=== PATIENT | female | born 1980 | race Caucasian/White ===

== ENCOUNTER 2016-07-30 00:49 | Inpatient (IN) | payer MEDICARE ==
[2016-07-30] VITALS (12 sets, daily range): BP systolic 90–163; BP diastolic 50–111
[~2016-07-30] VITALS: Ht 167.6 cm; Wt 120.8 kg
--- NOTE | ~2016-07-30 | PR ---
[place], [place] PROGRESS NOTE NAME: LAURA ISRAEL UNIT #: [id number] ROOM: 415 DOCTOR: DANIELA GILES MD BIRTHDATE: [birth year] DOS: SUBJECTIVE: The patient is doing 25% better. She was admitted for wheezing, unable to breath 2 days ago. The patient has been sick for almost a month. She has been coughing for a month, but in the last 2 weeks, she had more expectoration. The patient was also having chest pain and she still says that she gets very short of breath and feels chest pressure on deep breathing. OBJECTIVE: VITAL SIGNS: Blood pressure is 133/61, pulse is 105, respiratory 20, temperature 98.6. CHEST: Clinically, decreased breath sounds bilaterally, prolonged expiration. HEART: S1, S2, regular rate and rhythm. No murmur, gallop or rub. ABDOMEN: Soft, nontender. EXTREMITIES: No edema noted. LABORATORY DATA: Cardiac enzymes are negative. WBC count is 13.7, hemoglobin 16.2, platelets 284. ASSESSMENT: At this time is, 1. 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 2. Depression. 3. Generalized anxiety disorder. 4. Gastroesophageal reflux disease. 5. Hyperlipidemia. 6. Hyperglycemia. 7. Leukocytosis. 8. Morbid obesity. 9. Neuropathy. 10. Tobacco abuse. 11. Vitamin D deficiency. PLAN OF CARE: 1. We will continue all home medications. 2. We will continue Rocephin and methylprednisone. I am going to add Zithromax to cover for atypicals. 3. We will continue DuoNeb breathing treatments and we will follow the patient in the morning. Tobacco counseling was already done by Dr. Logan. [place], [place] PROGRESS NOTE NAME: LAURA ISRAEL UNIT #: [id number] ROOM: 415 DOCTOR: DANIELA GILES MD BIRTHDATE: [birth year] DANIELA GILES MD CM:PNTRANS [id number] DANIELA GILES MD 08/01/16 0614 interface
--- NOTE | ~2016-07-30 | WRIGHTHP ---
[place], [place] PATIENT HISTORY AND PHYSICAL EXAM NAME: LAURA ISRAEL [facility] #: [id number] UNIT #: [id number] ROOM: 415 DOCTOR: AUBREE GREEN MD BIRTHDATE: [birth year] DOS: 07/30/2016 HISTORY OF PRESENT ILLNESS: The patient is a 35-year-old female who came to Emergency Department with history of difficulty breathing, wheezing and cold and cough for the last 2 weeks with some expectoration and she was progressively getting worse and have started having some chest pain for the last one day and she could not tolerate due to GERD, so she came to Emergency Department. She has been admitted to the hospital with chest pain and acute exacerbation of COPD with emphysema. ALLERGIES: THE PATIENT IS ALLERGIC TO ASPIRIN. PAST MEDICAL HISTORY: She is having history of chest pain in the past, COPD, depression, generalized anxiety disorder, GERD syndrome, hypercholesterolemia, hyperglycemia, leukocytosis, moderate protein-calorie malnutrition, morbid obesity with BMI of more than 40, neuropathy, systemic inflammatory response syndrome, tobacco abuse and vitamin D deficiency. The patient was admitted to hospital for gallbladder surgery last time. PAST SURGICAL HISTORY: History of arthroscopy of left knee, history of arthroscopy of the right knee and history of cholecystectomy, section and hysterectomy. SOCIAL HISTORY: The patient does not drink, does not use any illicit drug, but she smokes 1-1/2 pack of cigarettes daily when she was 10 years old. No recreational drugs. FAMILY HISTORY: Father at age 62, cause myocardial infarction and mother at age 44 of congestive heart failure, strong history of coronary heart disease in the family and myocardial infarctions and also cerebrovascular accident. PHYSICAL EXAMINATION: GENERAL: The patient is conscious, alert and oriented. VITAL SIGNS: Blood pressure 151/93, pulse is 82, respirations 19, temperature 97.9. She is 5 feet 6 inch tall, weighing 260 pounds, body mass is 42, oxygen saturation is about 97% on 2 liters of oxygen. HEENT: She has some congestion of nose and throat. Trachea is center. NECK: Veins are not distended. Carotid pulsation normal. HEART: Regular, no murmur or thrills. LUNGS: Showing few rhonchi with increased expiration. No crepitation. ABDOMEN: Soft. Liver and spleen not palpable. No area of tenderness, no mass palpable. EXTREMITIES: No edema of leg. LABORATORY DATA: Her protime is 10.3 which is normal. Comprehensive metabolic profile showed glucose 112. Other values are normal. CK-MB and troponin levels are normal. CBC showed white count 13,700, hemoglobin 16.2, hematocrit 46.8, 38% neutrophils, 47% lymphocytes, 10% monocytes. Chest x-ray is normal. Troponin level on 2 different occasions is normal. [place], [place] PATIENT HISTORY AND PHYSICAL EXAM NAME: [facility]RAEL [facility] [id number] UNIT #: [id number] ROOM: [facility] DOCTOR: AUBREE GREEN MD BIRTHDATE: [birth year] DIAGNOSES: So her diagnosis is chest pain with acute exacerbation of chronic obstructive pulmonary disease with emphysema, depression, generalized anxiety disorder, gastroesophageal reflux disease syndrome, hypercholesterolemia, hyperglycemia, leukocytosis, morbid obesity, neuropathy, tobacco abuse, vitamin D deficiency. HOME MEDICATIONS: The patient is taking aerosol treatment with Ventolin upper modules 20 mg daily, Symbicort 160/4.5 two puffs twice daily, Lipitor 10 mg daily, vitamin D 2000 units daily, vitamin E 4000 units twice daily, ibuprofen 600 mg 8 hours p.r.n., gabapentin 800 mg 3 times daily, Adipex 37.5 mg daily. PLAN OF TREATMENT: The patient will be admitted to hospital will be started on aerosol treatment with DuoNeb every 6 hours and Singulair 10 mg daily, Symbicort 160/4.5 two puffs twice daily, lisinopril and hydrochlorothiazide 10/12.5 mg daily, Tylenol p.r.n., Rocephin 1 gram IV daily and methylprednisolone 80 mg IV every 8 hours and aerosol with DuoNeb every 6 hours and the patient is counseled very strongly to stop smoking. I have to discuss with her in long why she need to stop smoking take more than 4-5 hours to convince her that she has to stop smoking. She agreed to do so. I will put her on Nicoderm patch 21 mg daily and she will be also put on 1400 calorie diet. AUBREE GREEN MD CM:HISPHYS:PATIENT HISTORY AND PHYSICAL EXAMINATION 5 1210 AUBREE GREEN MD 07/30/16 1211 interface
[~2016-07-30 00:49] MED LIST: ABILIFY10 MG PO; ADIPEX-P37.5 MG PO; AMOXICILLIN500 M2 PO; AMOXICILLIN500 MG PO; ANAPROX DS550 MG PO; ANTIVERT/2525 MG PO; ANUSOL-HC25 MG RC; AUGMENTIN 875 M1 TAB PO; BACTRIM DS 8001 TA1 PO; CARAFATE1 G1 PO; CLINDAMYCIN HC300 MG PO; DARVOCET N 1001 TAB PO; DIFLUCAN150 MG PO; DOXYCYCLINE MO100 MG PO; FLEXERIL10 MG PO; GEODON80 MG PO; HYDROCODONE BIT1 T11 PO; IBUPROFEN600 MG PO; KEFLEX500 MG PO; LIPITOR10 MG PO; MOTRIN800 MG PO; NEURONTIN800 MG PO; NORFLEX100 MG PO; PERCOCET 325 MG1 TA2 PO; PREDNICOT20 MG PO; PRILOSEC20 MG PO; PROAIR HFA0.09 MG/AC IH; PROTONIX40 MG PO; PYRIDIUM200 MG PO; SYMBICORT1 AE1 INH; TRAMADOL HCL50 MG PO; TRAZODONE100 MG PO; TRIMOX500 MG PO; ULTRAM50 MG PO; VALIUM10 MG PO; VENTOLIN H0.09 MG/AC INH; VENTOLIN0.09 MG/AC INH; VICODIN 5/500 505 MG PO; VITAMIN D32000 UNIT PO; VITAMIN E400 UNI1 PO; ZOFRAN ODT4 MG SL; ZOLOFT100 MG PO
[2016-07-30 01:08] LABS: HEMATOCRIT 46.8 % (37.0-47.0); HEMOGLOBIN 16.2 g/dl (12.0-16.0); MEAN CELL VOLUME 92.9 fl (81.0-99.0); MEAN CORPUSCULAR HGB 32.1 pg (27.0-31.0); MEAN CORPUSCULAR HGB CONC 34.6 g/dl (33.0-37.0); MEAN PLATELET VOLUME 9.8 fl (9.6-12.3); PLATELET COUNT AUTOMATED 284 10*3/uL (130-400); RED BLOOD COUNT 5.04 10*6/uL (4.10-5.10); RED CELL DISTRI WIDTH 12.3 % (0-14.5); WHITE BLOOD COUNT 13.7 10*3/uL (4.8-10.8)
[2016-07-30 01:18] LABS: PROTHROMBIN TIME 10.3 SECONDS (9.0-12.4)
[2016-07-30 01:24] LABS: ALBUMIN 3.3 gm/dl (3.1-4.5); ALKALINE PHOSPHATASE 105 U/L (45-117); BILIRUBIN, TOTAL 0.3 mg/dl (0.2-1.0); BUN 12 mg/dl (7-24); CARBON DIOXIDE 24 mmol/L (21-32); CHLORIDE 104 mmol/L (98-107); EST GLOM FILT AFRICAN AMERICAN > 60 ml/min; GLUCOSE 102 mg/dL (65-99); MAGNESIUM 1.9 mg/dL (1.5-2.1); POTASSIUM 3.5 mmol/L (3.5-5.1); SGOT/AST 32 IU/L (3-35); SGPT/ALT 63 U/L (12-78); SODIUM 136 mmol/L (136-145); TOTAL PROTEIN 7.3 gm/dL (6.4-8.2)
[2016-07-30 01:25] LABS: TROPONIN I < 0.015 ng/ml (<0.045)
[2016-07-30 01:28] LABS: BASOPHIL # 0.1 10*3/uL (0-0.1); BASOPHILS 1 % (0-1); EOSINOPHIL # 0.5 10*3/uL (0-0.4); EOSINOPHILS 4 % (1-4); LYMPHOCYTE # 6.4 10*3/uL (1.3-4.4); MONOCYTE # 1.4 10*3/uL (0.1-1.0); NEUTROPHIL # 5.2 10*3/uL (2.3-7.9); NEUTROPHILS 38 % (47-73); PLATELET SUFFICIENCY NORMAL (NORMAL); TOTAL CELLS COUNTED 100 #CELLS
[2016-07-31 08:00] VITALS: BP 133/61
[2016-07-31 12:00] VITALS: BP 131/76
[2016-07-31 16:00] VITALS: BP 107/58
[2016-07-31 20:00] VITALS: BP 139/78
[2016-08-01] VITALS: BP 150/95
[2016-08-01 08:00] VITALS: BP 108/61
[2016-08-01 16:00] VITALS: BP 139/87
[2016-08-01] MEDS ORDERED: AZITHROMYCIN500 M2 PO (18:23)
[2016-08-01] MEDS ORDERED: PREDNISONE10 MG PO (18:23)
[2016-08-01] MEDS ORDERED: LISINOPRIL10 M1 PO (18:26)
[2016-08-01] MEDS ORDERED: MONTELUKAST SOD10 MG PO (18:26)
[2016-08-01] MEDS ORDERED: HYDR12.5C PO (18:26)
[2016-08-01 20:00] VITALS: BP 140/88
== END 2016-08-01 20:35 | disposition home or self-care (01) | DRG 189 ==
LOC: ED 00:49 → EDHOLD 03:42 → 4E 03:42
PROVIDERS: Emergency Medicine Emergency Medical Services
DX: J96.00 Acute respiratory failure, unspecified whether with hypoxia or hypercapnia (principal); J44.1 Chronic obstructive pulmonary disease with (acute) exacerbation; Z68.41 Body mass index [BMI] 40.0-44.9, adult; G62.9 Polyneuropathy, unspecified; K21.9 Gastro-esophageal reflux disease without esophagitis; F17.210 Nicotine dependence, cigarettes, uncomplicated; F32.9 Major depressive disorder, single episode, unspecified; F41.1 Generalized anxiety disorder; E78.5 Hyperlipidemia, unspecified; R73.9 Hyperglycemia, unspecified; E55.9 Vitamin D deficiency, unspecified; E78.00 Pure hypercholesterolemia, unspecified; D72.829 Elevated white blood cell count, unspecified; E66.01 Morbid (severe) obesity due to excess calories; Z88.6 Allergy status to analgesic agent; Z90.49 Acquired absence of other specified parts of digestive tract; Z90.710 Acquired absence of both cervix and uterus; Z82.49 Family history of ischemic heart disease and other diseases of the circulatory system; Z82.3 Family history of stroke; Z79.1 Long term (current) use of non-steroidal anti-inflammatories (NSAID); Z79.899 Other long term (current) drug therapy

== ENCOUNTER → 2017-01-10 | Outpatient (CLI) | payer MEDICARE ==
[~2017-01-10] MED LIST changes: +AZITHROMYCIN500 M2 PO; +HYDR12.5C PO; +LISINOPRIL10 M1 PO; +MONTELUKAST SOD10 MG PO; +PREDNISONE10 MG PO
[2017-01-10 17:38] LABS: BASO # 0.1 10*3/uL (0.0-0.1); BASO % 0.7 % (0.0-1.0); EOS # 0.3 10*3/uL (0.0-0.4); EOS % 2.9 % (1.0-4.0); HEMATOCRIT 47.3 % (37.0-47.0); HEMOGLOBIN 16.5 g/dl (12.0-16.0); LYMPH # 4.4 10*3/uL (1.3-4.4); MEAN CELL VOLUME 94.8 fl (81.0-99.0); MEAN CORPUSCULAR HGB 33.1 pg (27.0-31.0); MEAN CORPUSCULAR HGB CONC 34.9 g/dl (33.0-37.0); MEAN PLATELET VOLUME 10.4 fl (9.6-12.3); MONO # 0.9 10*3/uL (0.1-1.0); MONO % 7.5 % (3.0-9.0); NEUT # 6.1 10*3/uL (2.3-7.9); NEUT % 51.6 % (47.0-73.0); PLATELET COUNT AUTOMATED 241 10*3/uL (130-400); RED BLOOD COUNT 4.99 10*6/uL (4.10-5.10); RED CELL DISTRI WIDTH 12.8 % (0-14.5); WHITE BLOOD COUNT 11.9 10*3/uL (4.8-10.8)
[2017-01-10 17:53] LABS: BUN 7 mg/dl (7-24); CHLORIDE 105 mmol/L (98-107); CHOLESTEROL 193 mg/dL (<200); CREATININE 0.54 mg/dL (0.55-1.02); POTASSIUM 3.7 mmol/L (3.5-5.1); SGOT/AST 54 IU/L (3-35); SGPT/ALT 67 U/L (12-78); SODIUM 139 mmol/L (136-145); TRIGLYCERIDES 280 mg/dl (<150); VLDL CHOLESTEROL 56 mg/dL (6-40)
[2017-01-10 18:01] LABS: ALKALINE PHOSPHATASE 102 U/L (45-117); FREE T4 1.13 ng/dl (0.76-1.46); HDL CHOLESTEROL 33 mg/dl (40-60); LDL CHOLESTEROL 104 mg/dL (9-159); TOTAL PROTEIN 7.1 gm/dL (6.4-8.2)
[2017-01-11 11:04] LABS: CREATININE,URINE 108.1 mg/dL (Not Estab.); MICRO ALBUMIN/CRE RATIO 12.4 (0.0-30.0)
== END | disposition home or self-care (01) ==
LOC: LAB 16:51
PROVIDERS: Internal Medicine
DX: I10 Essential (primary) hypertension (principal)

== ENCOUNTER → 2017-02-21 | Outpatient (CLI) | payer MEDICARE ==
[2017-02-22 20:08] LABS: HEPATITIS C QNT HCV Not Detected IU/mL (.)
== END | disposition home or self-care (01) ==
LOC: LAB 07:18 → MAMMO 08:00
PROVIDERS: Internal Medicine
DX: N60.02 Solitary cyst of left breast (principal); B18.2 Chronic viral hepatitis C; K76.0 Fatty (change of) liver, not elsewhere classified

== ENCOUNTER → 2017-07-19 | Outpatient (CLI) | payer MEDICARE | END | disposition home or self-care (01) | LOC: MAMMO 13:24 | DX: N64.52 Nipple discharge (principal) ==

== ENCOUNTER → 2017-07-26 | Day surgery (SDC) | payer MEDICARE ==
[2017-07-24 08:16] VITALS: BP 143/88
[2017-07-24 08:59] LABS: BASO # 0.1 10*3/uL (0.0-0.1); BASO % 0.6 % (0.0-1.0); EOS # 0.3 10*3/uL (0.0-0.4); HEMATOCRIT 50.2 % (37.0-47.0); LYMPH # 3.6 10*3/uL (1.3-4.4); LYMPH % 33.1 % (27.0-41.0); MEAN CELL VOLUME 94.9 fl (81.0-99.0); MEAN CORPUSCULAR HGB 32.1 pg (27.0-31.0); MEAN CORPUSCULAR HGB CONC 33.9 g/dl (33.0-37.0); MONO # 0.8 10*3/uL (0.1-1.0); MONO % 7.3 % (3.0-9.0); NEUT % 55.7 % (47.0-73.0); PLATELET COUNT AUTOMATED 284 10*3/uL (130-400); RED BLOOD COUNT 5.29 10*6/uL (4.10-5.10); RED CELL DISTRI WIDTH 12.7 % (0-14.5); WHITE BLOOD COUNT 10.8 10*3/uL (4.8-10.8)
[2017-07-24 09:22] LABS: BUN 10 mg/dl (7-24); CHLORIDE 101 mmol/L (98-107); CREATININE 0.77 mg/dL (0.55-1.02); POTASSIUM 3.8 mmol/L (3.5-5.1); SODIUM 137 mmol/L (136-145)
[2017-07-24 09:33] LABS: ACT PARTIAL THROMBO TIME 23.7 SECONDS (20.8-31.5)
[~2017-07-26] VITALS: Ht 167.6 cm; Wt 122.5 kg
[~2017-07-26] MED LIST changes: +CLONAZEPAM1 MG PO; +NORCO 5-325 TA1 EACH PO; +PROZAC40 M1 PO
--- NOTE | ~2017-07-26 | O ---
[place], [place] OPERATIVE NOTE [id number] UNIT #: [id number] ROOM: DOCTOR: MITCHELL DURBIN MD BIRTHDATE: [birth year] DOS: 07/26/2017 PREOPERATIVE DIAGNOSES: Left breast bloody nipple discharge, left breast mass. POSTOPERATIVE DIAGNOSES: Left breast bloody nipple discharge, left breast mass. PROCEDURE: Left breast subareolar excision. SURGEON: Mitchell Durbin MD PATTERN SHOP SUPERVISOR: SRAVAN. ANESTHESIA: General. INDICATIONS: This is a 36-year-old lady with a history of a left breast mass with bloody nipple discharge, who is here for the above-mentioned procedure. The procedure and its complications were explained to the patient in detail preoperatively. Complications that were discussed included but were not limited to bleeding, infection, hematoma/seroma/abscess formation and prolonged pain. She agreed to proceed. DESCRIPTION OF PROCEDURE: After identifying the patient, the patient was brought to the operating suite and laid in the supine position. After induction of general anesthesia, timeout procedure was called and the parts were then painted and draped in the usual sterile fashion. An incision was marked in a circumareolar fashion between 9 and 3 o'clock positions. Local anesthesia (1% plain lidocaine) was given for pain control. An incision was made and deepened in layers. The subareolar excision was performed after the breast tissue was with the help of blunt and sharp dissection from the overlying nipple areolar complex. Thereafter, the breast tissue was excised after it was excised after it was dissected away with electrocautery from the surrounding breast tissue. After the mass was removed, it was labeled with the help of a nylon suture, long suture was labeled as lateral and short suture was labeled as superior. The specimen was then sent for histopathological diagnosis. Saline was used for irrigation of the cavity and hemostasis was confirmed. Thereafter, the subcutaneous tissue was approximated with the help of 3-0 Vicryl in a running fashion and the skin edges were approximated help of 4-0 Vicryl in a subcuticular running fashion. Dressing was placed. The patient tolerated the procedure well and was taken to the recovery room in stable fashion. There were no complications. Dr. Mitchell uDrbin, the attending surgeon, was present throughout the operating case. [place], [place] OPERATIVE NOTE NAME: LAURA ISRAEL UNIT #: [id number] ROOM: DOCTOR: MITCHELL DURBIN MD BIRTHDATE: [birth year] Mitchell Durbin MD CM:OPRECORD:OPERATIVE NOTE [id number] MITCHELL DURBIN MD 07/26/17 1145 interface
[2017-07-26 09:00] VITALS: BP 152/89
[2017-07-26 11:32] VITALS: BP 135/84
[2017-07-26 11:47] VITALS: BP 117/72
[2017-07-26 11:59] VITALS: BP 120/78
[2017-07-26 12:16] VITALS: BP 124/84
[2017-07-26 12:23] VITALS: BP 138/87
== END | disposition home or self-care (01) ==
LOC: SDC 07-24 08:00
PROVIDERS: Surgery
DX: N60.12 Diffuse cystic mastopathy of left breast (principal); D24.2 Benign neoplasm of left breast; F17.210 Nicotine dependence, cigarettes, uncomplicated; I10 Essential (primary) hypertension; F41.9 Anxiety disorder, unspecified; J44.9 Chronic obstructive pulmonary disease, unspecified; F31.9 Bipolar disorder, unspecified; K21.9 Gastro-esophageal reflux disease without esophagitis; B19.20 Unspecified viral hepatitis C without hepatic coma; Z79.899 Other long term (current) drug therapy; Z88.8 Allergy status to other drugs, medicaments and biological substances

== ENCOUNTER 2018-02-28 14:24 | Emergency (ER) | payer MEDICARE ==
[~2018-02-28] VITALS: Ht 167.6 cm; Wt 117.9 kg
[2018-02-28 14:24] VITALS: BP 152/90
[~2018-02-28 14:24] MED LIST changes: +FLOMAX0.4 MG PO
[2018-02-28] MEDS ORDERED: CYCLOBENZAPRINE10 MG PO (14:56)
== END 2018-02-28 16:51 | disposition home or self-care (01) ==
LOC: ED 14:24
DX: S93.601A Unspecified sprain of right foot, initial encounter (principal); M54.5 Low back pain; F17.200 Nicotine dependence, unspecified, uncomplicated; Z90.710 Acquired absence of both cervix and uterus; Z90.49 Acquired absence of other specified parts of digestive tract; Z79.899 Other long term (current) drug therapy; W00.0XXA Fall on same level due to ice and snow, initial encounter; Y93.89 Activity, other specified; Y92.89 Other specified places as the place of occurrence of the external cause; Y99.8 Other external cause status

== ENCOUNTER 2019-02-11 16:32 | Inpatient (IN) | payer MEDICARE ==
[~2019-02-11] VITALS: Ht 167.6 cm; Wt 123.5 kg
[~2019-02-11 16:32] MED LIST changes: +CYCLOBENZAPRINE10 MG PO; +PRILOSEC20 M1 PO; -PRILOSEC20 MG PO; +ROBAXIN500 M1 PO
--- NOTE | 2019-02-11 16:45 | NUR ---
A 38, admitted to , under the services of DANIELA Darnell MD with a diagnosis of COPD EXACERBATION. Chief complaint is SHORTNESS OF BREATH, COUGH. Patient arrived via wheel chair from [place]. Monitor applied. Initial assessment completed. Vital signs taken and recorded. DANIELA DARNELL MD notified of admission to the unit. Orders received. See assessment for past medical history, medications and allergies. Patient and/or family oriented to unit. [facility]. Clothing/patient valuable form completed. BRET FIGUEROA
[2019-02-11 17:00] VITALS: BP 137/84
[2019-02-11] MEDS ORDERED: HYDROCHLOROTH12.5 M3 PO (17:16)
[2019-02-11] MEDS ORDERED: BUSPAR15 MG PO (17:18)
[2019-02-11] MEDS ORDERED: VALIUM10 MG PO (17:20)
[2019-02-11] MEDS ORDERED: SPIRIVA RESPIMAT4 GM INH (17:21)
[2019-02-11 17:58] LABS: BASO # 0.1 10*3/uL (0.0-0.1); BASO % 0.4 % (0.0-1.0); EOS # 0.3 10*3/uL (0.0-0.4); EOS % 2.3 % (1.0-4.0); HEMOGLOBIN 15.7 g/dl (12.0-16.0); LYMPH # 4.4 10*3/uL (1.3-4.4); LYMPH % 31.4 % (27.0-41.0); MEAN CELL VOLUME 96.5 fl (81.0-99.0); MEAN CORPUSCULAR HGB 32.2 pg (27.0-31.0); MEAN CORPUSCULAR HGB CONC 33.4 g/dl (33.0-37.0); MEAN PLATELET VOLUME 9.9 fl (9.6-12.3); MONO # 1.2 10*3/uL (0.1-1.0); MONO % 8.5 % (3.0-9.0); NEUT # 7.9 10*3/uL (2.3-7.9); NEUT % 56.9 % (47.0-73.0); PLATELET COUNT AUTOMATED 273 10*3/uL (130-400); RED BLOOD COUNT 4.87 10*6/uL (4.10-5.10); RED CELL DISTRI WIDTH 12.9 % (0-14.5)
[2019-02-11 18:15] LABS: ALBUMIN 3.2 gm/dl (3.1-4.5); ALKALINE PHOSPHATASE 84 U/L (45-117); BUN 10 mg/dl (7-24); CHLORIDE 107 mmol/L (98-107); CREATININE 0.63 mg/dL (0.55-1.02); POTASSIUM 3.6 mmol/L (3.5-5.1); SGOT/AST 18 IU/L (3-35); SGPT/ALT 30 U/L (12-78); SODIUM 140 mmol/L (136-145); TOTAL PROTEIN 7.2 gm/dL (6.4-8.2)
[2019-02-11 18:16] LABS: TROPONIN I < 0.015 ng/ml (<0.045)
[2019-02-11 20:00] VITALS: BP 130/81
[2019-02-12] VITALS: BP 148/90
--- NOTE | 2019-02-12 01:26 | NUR ---
Patient resting quietly with no c/o discomfort. Respirations easy and regular. Vital signs stable. No overt distress. CALL LIGHT WITHIN REACH. HISSOM,CASSIDY
--- NOTE | 2019-02-12 02:05 | NUR ---
24 HR chart check completed.
--- NOTE | 2019-02-12 04:17 | NUR ---
Patient sleeping. Respirations relaxed and easy. Siderails up . [place] on. CALL LIGHT WITHIN REACH. HISSOM,CASSIDY
--- NOTE | 2019-02-12 05:40 | NUR ---
PT C/O 10/09 HEADACHE. MEDICATED PER ORDER. WILL CONTINUE TO MONITOR FOR RELIEF. VOICES NO OTHER CONERNS AT THIS TIME. RESTING IN BED. CALL LIGHT WITHIN REACH
[2019-02-12 06:02] LABS: BASO % 0.2 % (0.0-1.0); LYMPH # 1.4 10*3/uL (1.3-4.4); LYMPH % 11.3 % (27.0-41.0); MEAN CELL VOLUME 96.8 fl (81.0-99.0); MEAN CORPUSCULAR HGB 32.3 pg (27.0-31.0); MEAN CORPUSCULAR HGB CONC 33.3 g/dl (33.0-37.0); MEAN PLATELET VOLUME 10.4 fl (9.6-12.3); MONO # 0.1 10*3/uL (0.1-1.0); NEUT # 10.9 10*3/uL (2.3-7.9); NEUT % 86.8 % (47.0-73.0); PLATELET COUNT AUTOMATED 266 10*3/uL (130-400); RED BLOOD COUNT 4.96 10*6/uL (4.10-5.10); RED CELL DISTRI WIDTH 12.7 % (0-14.5); WHITE BLOOD COUNT 12.5 10*3/uL (4.8-10.8)
[2019-02-12 06:19] LABS: ALKALINE PHOSPHATASE 92 U/L (45-117); BUN 9 mg/dl (7-24); CHLORIDE 105 mmol/L (98-107); CHOLESTEROL 184 mg/dL (<200); CREATININE 0.67 mg/dL (0.55-1.02); FREE T4 0.96 ng/dl (0.76-1.46); HDL CHOLESTEROL 41 mg/dl (40-60); LDL CHOLESTEROL 127 mg/dL (9-159); POTASSIUM 3.8 mmol/L (3.5-5.1); SGOT/AST 12 IU/L (3-35); SGPT/ALT 30 U/L (12-78); SODIUM 138 mmol/L (136-145); TOTAL PROTEIN 7.4 gm/dL (6.4-8.2); TRIGLYCERIDES 80 mg/dl (<150); VLDL CHOLESTEROL 16 mg/dL (6-40)
[2019-02-12 06:24] LABS: THYROID STIM HORMONE (HS) 0.552 uIU/ml (0.358-4.75)
[2019-02-12 08:00] VITALS: BP 106/80
--- NOTE | 2019-02-12 09:00 | NUR ---
Dehydrogenation Converter Helper in to talk to patient. Patient states lives at home with her boyfriend and son. There are 0 steps in the home. Physician: Dr. Toro Roy Pharmacy: [facility] Home health services: none Patient's level of ADLs: INDEPENDENT Patient has working utilities: yes DME: none Follow-up physician's appointment after d/c: she prefers to make her own follow up appt after discharge Does patient want to access PORTAL?: no Discharge plan discussed with patient. She lives at home with her boyfriend and son. She is independent in her ADLs and ambulation. Discussed home health care services and she denies any home needs at this time. When medically stable she will be discharged to home. She states her boyfriend will provide transportation on discharge. YUMI BECERRA
[2019-02-12 12:00] VITALS: BP 150/66
[2019-02-12 16:00] VITALS: BP 131/66
[2019-02-12 20:00] VITALS: BP 130/67
--- NOTE | 2019-02-12 22:51 | NUR ---
PATIENT RESTING IN BED WITH EYES CLOSED. NO SIGNS OR SYMPTOMS OF DISTRESS NOTED. RESPIRATIONS REGULAR AND NON-LABORED. AROUSES TO VERBAL STIMULI. DENIES COMPLAINTS OF PAIN OR DISCOMFORT. AMBULATES TO BATHROOM PER SELF. PATIENT BECOMES SOB WITH EXERTION. WILL CONTINUE TO MONITOR. CALL LIGHT IN REACH.
[2019-02-13] VITALS: BP 125/57
[2019-02-13 06:56] LABS: HEMATOCRIT 44.7 % (37.0-47.0); HEMOGLOBIN 14.7 g/dl (12.0-16.0); MEAN CELL VOLUME 95.9 fl (81.0-99.0); MEAN CORPUSCULAR HGB 31.5 pg (27.0-31.0); MEAN CORPUSCULAR HGB CONC 32.9 g/dl (33.0-37.0); MEAN PLATELET VOLUME 10.7 fl (9.6-12.3); PLATELET COUNT AUTOMATED 301 10*3/uL (130-400); RED BLOOD COUNT 4.66 10*6/uL (4.10-5.10); WHITE BLOOD COUNT 25.8 10*3/uL (4.8-10.8)
[2019-02-13 07:21] LABS: BUN 12 mg/dl (7-24); CHLORIDE 110 mmol/L (98-107); POTASSIUM 3.9 mmol/L (3.5-5.1); SODIUM 140 mmol/L (136-145)
[2019-02-13 07:22] LABS: CREATININE 0.58 mg/dL (0.55-1.02)
[2019-02-13 07:30] LABS: ATYPICAL LYMPHS 3 % (0-0); PLATELET SUFFICIENCY NORMAL (NORMAL); TOTAL CELLS COUNTED 100 #CELLS
[2019-02-13 08:00] VITALS: BP 135/84
--- NOTE | 2019-02-13 08:24 | NUR ---
NORCO GIVEN PER ORDER FOR C/O RIB PAIN DUE TO FREQUENT COUGH. WILL MONITOR EFFECTIVENESS. RESPIRATIONS EASY, REGULAR ON RA. VSS. CALL LIGHT WITHIN REACH.
--- NOTE | 2019-02-13 09:00 | NUR ---
Data Solutions Architect in to see patient. No new needs or request at this time. She denies any home needs. When medically stable she will be discharged to home. Per multidisciplinary discharge planning meeting treating COPD and consulting Dr. Leslie for slow improvement.
--- NOTE | 2019-02-13 09:30 | NUR ---
NORCO EFFECTIVE PER PT. WILL CONTINUE TO MONITOR.
--- NOTE | 2019-02-13 10:45 | NUR ---
NOTIFED OF CONSULT.
[2019-02-13 12:00] VITALS: BP 131/90
[2019-02-13 16:00] VITALS: BP 122/73
--- NOTE | 2019-02-13 16:00 | NUR ---
PATIENT RESTING QUIETLY IN BED. NO DISTRESS NOTED. SOB WITH MINIMAL EXERTION. WILL MONITOR. CALL LIGHT WITHIN REACH.
[2019-02-13 20:00] VITALS: BP 133/49
--- NOTE | 2019-02-13 22:02 | NUR ---
PATIENT MEDICATED WITH TYLENOL FOR COMPLAINTS OF A HEADACHE. STATED SHE CONTINUE TO GET EXTREMELY SOB WITH AMBULATING IN THE HALLWAY AND GOING TO THE BATHROOM. LUNGS DIMINISHED ON ROOM AIR. WILL CONTINUE TO MONITOR. CALL LIGHT IN REACH.
[2019-02-14] VITALS: BP 112/58
[2019-02-14 06:15] LABS: HEMATOCRIT 45.4 % (37.0-47.0); HEMOGLOBIN 14.8 g/dl (12.0-16.0); MEAN CELL VOLUME 96.6 fl (81.0-99.0); MEAN CORPUSCULAR HGB 31.5 pg (27.0-31.0); MEAN CORPUSCULAR HGB CONC 32.6 g/dl (33.0-37.0); MEAN PLATELET VOLUME 10.3 fl (9.6-12.3); PLATELET COUNT AUTOMATED 309 10*3/uL (130-400); RED CELL DISTRI WIDTH 13.2 % (0-14.5); WHITE BLOOD COUNT 26.2 10*3/uL (4.8-10.8)
[2019-02-14 06:36] LABS: BUN 14 mg/dl (7-24); CHLORIDE 110 mmol/L (98-107); CREATININE 0.54 mg/dL (0.55-1.02); PLATELET SUFFICIENCY NORMAL (NORMAL); POTASSIUM 4.2 mmol/L (3.5-5.1); SODIUM 141 mmol/L (136-145); TOTAL CELLS COUNTED 100 #CELLS
[2019-02-14 08:00] VITALS: BP 118/64
--- NOTE | 2019-02-14 08:45 | NUR ---
PT REQUESTED AND WAS MEIDCATED WITH TYLENOL FOR C/O HEADACHE. CALL LIGHT IN REACH. WILL MONITOR
--- NOTE | 2019-02-14 09:00 | NUR ---
case management visits with patient, she will return home when medically stable for discharged, denies any home needs
--- NOTE | 2019-02-14 10:00 | NUR ---
MEDICATION EFFECTIVE PER PT
[2019-02-14 12:00] VITALS: BP 128/66
[2019-02-14 16:00] VITALS: BP 113/56
--- NOTE | 2019-02-14 19:30 | NUR ---
24 HOUR CHART CHECK COMPLETED
[2019-02-14 20:00] VITALS: BP 133/63
--- NOTE | 2019-02-14 20:05 | NUR ---
PATIENT ASSESSMENT COMPLETE AT THIS TIME WITHOUT INCIDENT. PATIENT DENIES ANY PAIN, CHEST PAIN OR PRESSURE, JUST COMPLETIMG A BREATHING TREATMENT. MEDICATIONS GIVEN WITHOUT INCIDENT. CALL LIGHT WITHIN REACH WILL CONTINUE TO MONITOR.
--- NOTE | 2019-02-14 21:40 | NUR ---
PATIENT SHOWERED AT THIS TIME WITHOUT INCIDENT, IV SITE COVERED AND MONITOR REMOVED PRIOR TO SHOWER. MONITOR REAPPLIED AFTER PATIENT COMPLETED SHOWER AND IV SITE INTACT.
[2019-02-15] VITALS: BP 156/93
--- NOTE | 2019-02-15 00:45 | NUR ---
PATIENT RESTING IN BED IN A POSITION OF COMFORT AT THIS TIME. CURRENTLY ON CPAP WITH FULL FACE MASK. CALL LIGHT WITHIN REACH, WILL CONTINUE TO MONITOR.
--- NOTE | 2019-02-15 04:20 | NUR ---
PATIENT RESTING IN BED IN A POSITION OF COMFORT AT THIS TIME, CURRENTLY ON CPAP WITH FULL FACE MASK. NO SIGNS OR SYMPTOMS OF DISTRESS NOTED AT THIS TIME. CALL LIGHT WITHIN REACH, WILL CONTINUE TO MONITOR.
[2019-02-15 06:30] LABS: HEMATOCRIT 44.9 % (37.0-47.0); HEMOGLOBIN 14.6 g/dl (12.0-16.0); MEAN CELL VOLUME 97.6 fl (81.0-99.0); MEAN CORPUSCULAR HGB 31.7 pg (27.0-31.0); MEAN CORPUSCULAR HGB CONC 32.5 g/dl (33.0-37.0); MEAN PLATELET VOLUME 10.1 fl (9.6-12.3); NUCLEATED RED BLOOD CELL 0.1 % (0.0-0.0); PLATELET COUNT AUTOMATED 297 10*3/uL (130-400); RED CELL DISTRI WIDTH 13.2 % (0-14.5); WHITE BLOOD COUNT 24.1 10*3/uL (4.8-10.8)
[2019-02-15 06:47] LABS: BUN 21 mg/dl (7-24); CHLORIDE 108 mmol/L (98-107); CREATININE 0.68 mg/dL (0.55-1.02); PHOSPHOROUS 3.7 mg/dL (2.5-4.9); SODIUM 141 mmol/L (136-145)
[2019-02-15 07:26] LABS: TOTAL CELLS COUNTED 100 #CELLS
[2019-02-15 07:27] LABS: PLATELET SUFFICIENCY NORMAL (NORMAL)
[2019-02-15 08:00] VITALS: BP 142/92
[2019-02-15 12:00] VITALS: BP 133/85
[2019-02-15 16:00] VITALS: BP 145/82
[2019-02-15 20:00] VITALS: BP 129/83
--- NOTE | 2019-02-15 20:15 | NUR ---
PATIENT ASSESSMENT COMPLETED AT THIS TIME. PATIENT DENIED ANY CHEST PAIN OR SHORTNESS OF BREATH AT THIS TIME. CALL LIGHT WITHIN REACH WILL CONTINUE TO MONITOR
--- NOTE | 2019-02-15 22:04 | NUR ---
PATIENT HAD REQUESTED SOMETHING OTHER THAN TYLENOL FOR PERSISTANT HEADACHE AND RIB PAIN FROM COUGHING. ORDERED A ONE TIME DOSE OF VICODIN, WHICH WAS ADMINISTED TO PATIENT AT THIS TIME.
--- NOTE | 2019-02-15 22:44 | NUR ---
PATIENT STATED THAT PAIN WAS NOW A 4 FROM AN 8 EARLIER AFTER BEING MEDICATED WILL CONTINUE TO MONITOR
[2019-02-16] VITALS: BP 119/50
--- NOTE | 2019-02-16 00:20 | NUR ---
PATIENT RESTING IN A POSITION OF COMFORT IN BED CURRENTLY ON CPAP WITH FULL FACE MASK. CALL LIGHT WITHIN REACH WILL CONTINUE TO MONITOR
[2019-02-16 05:36] LABS: HEMATOCRIT 45.3 % (37.0-47.0); MEAN CELL VOLUME 97.6 fl (81.0-99.0); MEAN CORPUSCULAR HGB 32.3 pg (27.0-31.0); MEAN CORPUSCULAR HGB CONC 33.1 g/dl (33.0-37.0); NUCLEATED RED BLOOD CELL 0.1 % (0.0-0.0); PLATELET COUNT AUTOMATED 290 10*3/uL (130-400); RED BLOOD COUNT 4.64 10*6/uL (4.10-5.10); RED CELL DISTRI WIDTH 13.2 % (0-14.5)
[2019-02-16 05:47] LABS: BUN 23 mg/dl (7-24); CHLORIDE 106 mmol/L (98-107); POTASSIUM 4.2 mmol/L (3.5-5.1); SODIUM 141 mmol/L (136-145)
--- NOTE | 2019-02-16 07:00 | NUR ---
PATIENT TAKEN OFF OF BI-PAP. PULSE OX 92% ON ROOM AIR.
[2019-02-16 07:01] LABS: ATYPICAL LYMPHS 3 % (0-0); TOTAL CELLS COUNTED 100 #CELLS
[2019-02-16 07:02] LABS: PLATELET SUFFICIENCY NORMAL (NORMAL); POLYCHROMASIA SLIGHT; TOXIC GRANULATION SLIGHT; VACUOLATION OF NEUTROPHILS SLIGHT
[2019-02-16 08:00] VITALS: BP 147/85
[2019-02-16 12:00] VITALS: BP 106/60
[2019-02-16 16:00] VITALS: BP 134/87
--- NOTE | 2019-02-16 19:58 | NUR ---
POX 91% ON ROOM AIR. PT STATES SHE FEELS SOB AFTER GETTING UP TO BATHROOM. O2 APPLIED AT 2L FOR SHORT AMOUNT OF TIME TO CATCH PT UP. WILL MONITOR. CALL LIGHT IN REACH.
[2019-02-16 20:00] VITALS: BP 149/83
--- NOTE | 2019-02-16 20:29 | NUR ---
POX NOW 94% ON 2L. PT DENIES SOB WHILE SITTING UP IN BED. NASAL CANNULA REMOVED. POX 92% ON ROOM AIR. PT EDUCATED TO USE CALL LIGHT TO NOTIFY RN IF SOB RETURNS. PT VERBALIZES UNDERSTANDING. WILL MONITOR. CALL LIGHT IN REACH.
[2019-02-17] VITALS (9 sets, daily range): BP systolic 115–152; BP diastolic 61–93
--- NOTE | 2019-02-17 02:08 | NUR ---
PT ASLEEP IN BED. RESPIRATIONS EASY. NO S/S OF DISTRESS NOTED. WILL MONITOR. CALL LIGHT LEFT IN REACH. HR 65. POX 95% ON CPAP.
--- NOTE | 2019-02-17 07:45 | NUR ---
PT RESTING IN BED. HARSH NONPROD COUGH NOTED. LUNGS DIMINISHED WITH WHEEZE NOTED. NO C/O AT THIS TIME. CALL LIGHT IN REACH. WILL CON'T TO MONITOR.
--- NOTE | 2019-02-17 07:45 | NUR ---
PT NPO FOR BRONCHOSCOPY, PAPERWORK AND PT READY FOR SURGERY LESLEY JOHN SPNRCC
--- NOTE | 2019-02-17 08:00 | NUR ---
TO SURGERY VIA BED ACCOMPANIED BY SURGICAL STAFF LESLEY ZAMARRIPA
--- NOTE | 2019-02-17 10:38 | NUR ---
BACK IN ROOM FROM SURGERY, FAMILY AT THE BEDSIDE, NO COMPLAINTS VOICED AT THIS TIME LESLEY ZAMARRIPA
--- NOTE | 2019-02-17 10:40 | NUR ---
PT AMBULATORY IN ROOM. TOLERATED ROUTINE MEDS WITH NO PROBLEM. VISITOR AT HER SIDE. NO C/O AT THIS TIME. CALL LIGHT IN REACH.
--- NOTE | 2019-02-17 15:04 | NUR ---
Marine Radio Installer And Servicer in to see patient. She is receiving a breathing treatment at this time. Discussed home health care services and she denies any home needs. No new needs or request. When medically stable she will be discharged to home. She had a bronchoscopy this morning and plans to be discharged tomorrow.
--- NOTE | 2019-02-17 16:10 | NUR ---
PT RESTING IN BED. RESP-EASY AND REGULAR. NO C/O AT THIS TIME. CALL LIGHT IN REACH. SEE SHIFT ASSESSMENT.
--- NOTE | 2019-02-17 18:40 | NUR ---
TOLERATING ROUTINE IV MED WITH NO PROBLEM. CALL LIGHT IN REACH.
[2019-02-18] VITALS: BP 111/56; BP 99/65
--- NOTE | 2019-02-18 01:09 | NUR ---
PT ASLEEP IN BED. RESPIRATIONS EASY. CPAP IN USE. WILL MONITOR. CALL LIGHT IN REACH.
--- NOTE | 2019-02-18 05:53 | NUR ---
PT TOOK SELF OFF CPAP. NO NEEDS VOICED AT THIS TIME.
[2019-02-18 06:43] LABS: HEMATOCRIT 46.7 % (37.0-47.0); HEMOGLOBIN 15.5 g/dl (12.0-16.0); MEAN CELL VOLUME 97.9 fl (81.0-99.0); MEAN CORPUSCULAR HGB 32.5 pg (27.0-31.0); MEAN CORPUSCULAR HGB CONC 33.2 g/dl (33.0-37.0); MEAN PLATELET VOLUME 10.2 fl (9.6-12.3); NUCLEATED RED BLOOD CELL 0.1 % (0.0-0.0); PLATELET COUNT AUTOMATED 309 10*3/uL (130-400); RED BLOOD COUNT 4.77 10*6/uL (4.10-5.10); RED CELL DISTRI WIDTH 13.1 % (0-14.5)
[2019-02-18 07:03] LABS: BUN 31 mg/dl (7-24); CHLORIDE 104 mmol/L (98-107); POTASSIUM 4.4 mmol/L (3.5-5.1); SODIUM 137 mmol/L (136-145)
[2019-02-18 08:00] VITALS: BP 117/75
--- NOTE | 2019-02-18 08:00 | NUR ---
PT SITTING UP IN BED. RESP-EASY AND REGULAR AT THIS TIME. NO C/O AT THIS TIME. CALL LIGHT IN REACH. SEE SHIFT ASSESSMENT.
[2019-02-18 08:14] LABS: TOTAL CELLS COUNTED 100 #CELLS
[2019-02-18 08:15] LABS: PLATELET SUFFICIENCY NORMAL (NORMAL)
--- NOTE | 2019-02-18 09:50 | NUR ---
TOLERATED ROUTINE MEDICATION WITH NO PROBLEM. NO C/O AT THIS TIME. CALL LIGHT IN REACH. DR. CHINCHILLA INTO SEE PT.
--- NOTE | 2019-02-18 10:30 | NUR ---
Rn Immunology in to see patient. Discussed home health care services and she denies any home needs. No new needs or request. When medically stable she will be discharged to home. Per multidisciplinary discharge planning meeting she is a potential discharge today. Awaiting Dr. Roy to round.
[2019-02-18 12:00] VITALS: BP 125/86
[2019-02-18 16:00] VITALS: BP 140/92
--- NOTE | 2019-02-18 16:10 | NUR ---
PT RESTING IN BED. RESP-EASY AND REGULAR. TOLERATED ROUTINE MED WITH NO PROBLEM. CALL LIGHT IN REACH. SEE SHIFT ASSESSMENT.
--- NOTE | 2019-02-18 17:27 | NUR ---
CALLED DR. NOVA AND MADE AWARE PT ANTIBIOTICS NEEDED RENEWED IF WANTED THEM REORDERED. ORDER TAKEN AND REVIEWED.
[2019-02-18 18:07] LABS: ACID FAST SPEC PROCESSING Concentration (.)
[2019-02-18 20:00] VITALS: BP 141/83
--- NOTE | 2019-02-18 20:45 | NUR ---
PT MEDICATED WITH PO TYLENOL FOR C/O HEADACHE. PT'S TEMP 99.1. WILL MONITOR. CALL LIGHT IN REACH.
--- NOTE | 2019-02-18 22:31 | NUR ---
PT REQUESTED AND RECEIVED PO VALIUM PER ORDER FOR C/O ANXIETY AND RESTLESSNESS. WILL MONITOR EFFECTIVENESS. EARLIER TYLENOL EFFECTIVE FOR HEADACHE. CALL LIGHT LEFT IN REACH. IV ABX INFUSING.
[2019-02-19] VITALS: BP 118/69
--- NOTE | 2019-02-19 01:25 | NUR ---
PT ASLEEP IN BED. CPAP IN USE AT 30% FiO2. NO S/S OF DISTRESS NOTED. WILL MONITOR. CALL LIGHT IN REACH.
--- NOTE | 2019-02-19 06:01 | NUR ---
EARLIER MEDICATIONS APPEAR EFFECTIVE. PT RESTING IN BED. NO OTHER COMPLAINTS/NEEDS VOICED. WILL MONITOR.
[2019-02-19 06:28] LABS: BUN 30 mg/dl (7-24); CHLORIDE 103 mmol/L (98-107); CREATININE 0.73 mg/dL (0.55-1.02); POTASSIUM 4.3 mmol/L (3.5-5.1); SODIUM 136 mmol/L (136-145)
--- NOTE | 2019-02-19 06:38 | NUR ---
PT DENIES ANY NEEDS AT THIS TIME.
[2019-02-19 06:41] LABS: HEMATOCRIT 49.2 % (37.0-47.0); MEAN CELL VOLUME 97.8 fl (81.0-99.0); MEAN CORPUSCULAR HGB 31.8 pg (27.0-31.0); MEAN CORPUSCULAR HGB CONC 32.5 g/dl (33.0-37.0); MEAN PLATELET VOLUME 10.1 fl (9.6-12.3); PLATELET COUNT AUTOMATED 307 10*3/uL (130-400); RED BLOOD COUNT 5.03 10*6/uL (4.10-5.10); RED CELL DISTRI WIDTH 13.1 % (0-14.5); WHITE BLOOD COUNT 29.2 10*3/uL (4.8-10.8)
[2019-02-19 07:12] LABS: TOTAL CELLS COUNTED 100 #CELLS
[2019-02-19 07:13] LABS: PLATELET SUFFICIENCY NORMAL (NORMAL)
[2019-02-19 07:40] VITALS: BP 124/88
--- NOTE | 2019-02-19 07:40 | NUR ---
ASSESSMENT DONE AND DOCUMENTED. PT AWAKE AND SITTING IN BED, PLEASANT AND COOPERATIVE. DENIES ANY PAIN AT THIS TIME. MELY JORDAN SPNRCC
--- NOTE | 2019-02-19 09:30 | NUR ---
Manufacturing Plant Manager in to see patient. No new needs or request at this time. She denies any home needs. When medically stable she will be discharged to home.
--- NOTE | 2019-02-19 09:47 | NUR ---
PT RESTING IN BED. NO COMPLAINTS AT THIS TIME. MELY JORDAN SPNRCC
--- NOTE | 2019-02-19 11:51 | NUR ---
PT MEDICATED WITH TYLENOL FOR COMPLAINTS OF HEADACHE. WILL MONITOR.
[2019-02-19 12:00] VITALS: BP 133/82
--- NOTE | 2019-02-19 12:00 | NUR ---
ASSESSMENT COMPLETED AND DOCUMENTED. PT AWAKE, SITTING IN BED. NO COMPLAINTS AT THIS TIME. MELY JORDAN SPCC
--- NOTE | 2019-02-19 13:30 | NUR ---
PT SITTING IN BED WITH FAMILY MEMBER VISTING. REPORT GIVEN TO BRET. MELY JORDAN SPCC
[2019-02-19] MEDS ORDERED: DOXYCYCLINE100 MG PO (13:37)
[2019-02-19] MEDS ORDERED: PREDNISONE10 MG PO (13:37)
--- NOTE | 2019-02-19 13:50 | NUR ---
IV DC'D. CATH INTACT. SITE ASYMPTOMATIC. DSD IN PLACE. PT TOLERATED WELL. MELY JORDAN SPN RCC
--- NOTE | 2019-02-19 14:05 | NUR ---
Discharge instructions reviewed with patient/family. Patient receptive and verbalizes understanding. Follow-up care arranged. Written instructions given to patient/family. [place]OCK DISCONTINUED. MOTEL FRONT DESK ATTENDANT REMVOED. PT AMBULATORY OFF FLOOR. BRET FIGUEROA
== END 2019-02-19 14:05 | disposition home or self-care (01) | DRG 871 ==
LOC: 4E 16:32
PROVIDERS: Internal Medicine Critical Care Medicine; Internal Medicine Nephrology; Student in an Organized Health Care Education/Training Program; ADMIT Internal Medicine
PROC: 5A09357 Assistance with Respiratory Ventilation, Less than 24 Consecutive Hours, Continuous Positive Airway Pressure (ICD-10-PCS; principal; 2019-02-15)
PROC: 5A09357 Assistance with Respiratory Ventilation, Less than 24 Consecutive Hours, Continuous Positive Airway Pressure (ICD-10-PCS; 2019-02-16)
PROC: 0BC98ZZ Extirpation of Matter from Lingula Bronchus, Via Natural or Artificial Opening Endoscopic (ICD-10-PCS; 2019-02-17)
PROC: 0BC68ZZ Extirpation of Matter from Right Lower Lobe Bronchus, Via Natural or Artificial Opening Endoscopic (ICD-10-PCS; 2019-02-17)
PROC: 0BC88ZZ Extirpation of Matter from Left Upper Lobe Bronchus, Via Natural or Artificial Opening Endoscopic (ICD-10-PCS; 2019-02-17)
PROC: 0BC38ZZ Extirpation of Matter from Right Main Bronchus, Via Natural or Artificial Opening Endoscopic (ICD-10-PCS; 2019-02-17)
PROC: 0BCB8ZZ Extirpation of Matter from Left Lower Lobe Bronchus, Via Natural or Artificial Opening Endoscopic (ICD-10-PCS; 2019-02-17)
PROC: 5A09357 Assistance with Respiratory Ventilation, Less than 24 Consecutive Hours, Continuous Positive Airway Pressure (ICD-10-PCS; 2019-02-17)
PROC: 0BC58ZZ Extirpation of Matter from Right Middle Lobe Bronchus, Via Natural or Artificial Opening Endoscopic (ICD-10-PCS; 2019-02-17)
PROC: 0BC48ZZ Extirpation of Matter from Right Upper Lobe Bronchus, Via Natural or Artificial Opening Endoscopic (ICD-10-PCS; 2019-02-17)
PROC: 0BC18ZZ Extirpation of Matter from Trachea, Via Natural or Artificial Opening Endoscopic (ICD-10-PCS; 2019-02-17)
PROC: 0BC78ZZ Extirpation of Matter from Left Main Bronchus, Via Natural or Artificial Opening Endoscopic (ICD-10-PCS; 2019-02-17)
PROC: 5A09357 Assistance with Respiratory Ventilation, Less than 24 Consecutive Hours, Continuous Positive Airway Pressure (ICD-10-PCS; 2019-02-18)
PROC: 5A09357 Assistance with Respiratory Ventilation, Less than 24 Consecutive Hours, Continuous Positive Airway Pressure (ICD-10-PCS; 2019-02-19)
DX: A41.9 Sepsis, unspecified organism (principal); J18.9 Pneumonia, unspecified organism; J96.91 Respiratory failure, unspecified with hypoxia; J44.1 Chronic obstructive pulmonary disease with (acute) exacerbation; Z68.41 Body mass index [BMI] 40.0-44.9, adult; J44.0 Chronic obstructive pulmonary disease with (acute) lower respiratory infection; E78.00 Pure hypercholesterolemia, unspecified; K21.9 Gastro-esophageal reflux disease without esophagitis; F32.9 Major depressive disorder, single episode, unspecified; F41.1 Generalized anxiety disorder; J20.9 Acute bronchitis, unspecified; B19.20 Unspecified viral hepatitis C without hepatic coma; E83.39 Other disorders of phosphorus metabolism; G62.9 Polyneuropathy, unspecified; F17.210 Nicotine dependence, cigarettes, uncomplicated; E66.01 Morbid (severe) obesity due to excess calories; G47.33 Obstructive sleep apnea (adult) (pediatric); T38.0X5A Adverse effect of glucocorticoids and synthetic analogues, initial encounter; Y92.89 Other specified places as the place of occurrence of the external cause; Z71.6 Tobacco abuse counseling; Z87.442 Personal history of urinary calculi; Z90.49 Acquired absence of other specified parts of digestive tract; Z90.710 Acquired absence of both cervix and uterus; Z98.891 History of uterine scar from previous surgery; Z82.49 Family history of ischemic heart disease and other diseases of the circulatory system; Z88.6 Allergy status to analgesic agent; Z79.899 Other long term (current) drug therapy

== ENCOUNTER → 2019-04-15 | Outpatient (CLI) | payer MEDICARE ==
[~2019-04-15] MED LIST changes: +BUSPAR15 MG PO; +DOXYCYCLINE100 MG PO; +HYDROCHLOROTH12.5 M3 PO; +SPIRIVA RESPIMAT4 GM INH
== END | disposition home or self-care (01) ==
LOC: CT 08:00
DX: N20.0 Calculus of kidney (principal); D35.01 Benign neoplasm of right adrenal gland

== ENCOUNTER → 2020-05-10 | Outpatient (CLI) | payer MEDICARE | END | disposition home or self-care (01) | LOC: MAMMO 12:50 | PROVIDERS: ATTEND Internal Medicine | DX: Z12.31 Encounter for screening mammogram for malignant neoplasm of breast (principal); I10 Essential (primary) hypertension ==

== ENCOUNTER 2020-08-20 19:04 | Inpatient (IN) | payer MEDICARE ==
[~2020-08-20] VITALS: Ht 167.6 cm; Wt 127.0 kg
[2020-08-20 19:44] VITALS: BP 127/81
[2020-08-20 20:05] LABS: BASO # 0.1 10*3/uL (0.0-0.1); BASO % 0.4 % (0.0-1.0); EOS % 0.1 % (1.0-4.0); HEMATOCRIT 50.3 % (37.0-47.0); LYMPH # 1.6 10*3/uL (1.3-4.4); LYMPH % 9.3 % (27.0-41.0); MEAN CELL VOLUME 96.4 fl (81.0-99.0); MEAN CORPUSCULAR HGB CONC 33.2 g/dl (33.0-37.0); MEAN PLATELET VOLUME 9.7 fl (9.6-12.3); MONO # 0.9 10*3/uL (0.1-1.0); MONO % 5.2 % (3.0-9.0); NEUT # 14.1 10*3/uL (2.3-7.9); NEUT % 84.5 % (47.0-73.0); PLATELET COUNT AUTOMATED 297 10*3/uL (130-400); RED BLOOD COUNT 5.22 10*6/uL (4.10-5.10); RED CELL DISTRI WIDTH 12.8 % (0-14.5); WHITE BLOOD COUNT 16.7 10*3/uL (4.8-10.8)
[2020-08-20 20:18] LABS: ACT PARTIAL THROMBO TIME 26.5 SECONDS (20.0-32.1)
[2020-08-20 20:21] LABS: ALBUMIN 3.4 gm/dl (3.1-4.5); ALKALINE PHOSPHATASE 102 U/L (45-117); BUN 12 mg/dl (7-24); CHLORIDE 106 mmol/L (98-107); CREATININE 0.81 mg/dL (0.55-1.02); POTASSIUM 4.2 mmol/L (3.5-5.1); SGOT/AST 12 IU/L (3-35); SGPT/ALT 33 U/L (12-78); SODIUM 138 mmol/L (136-145)
[2020-08-20 21:21] VITALS: BP 96/58
[2020-08-20] MEDS ORDERED: PROAIR HFA8.5 GM INH (21:25)
[2020-08-20] MEDS ORDERED: TRAZODONE50 MG PO (21:26)
[2020-08-21] VITALS (7 sets, daily range): BP systolic 92–116; BP diastolic 49–73
[2020-08-21 08:07] LABS: ABG BASE EXCESS -1.5 mmol/L (-2.0-2.0); ARTERIAL BLOOD GAS PH 7.354 (7.35-7.45); ARTERIAL BLOOD GAS PO2 75.6 (80-90)
[2020-08-21 13:29] LABS: ABG BASE EXCESS -2.1 mmol/L (-2.0-2.0); ARTERIAL BLOOD GAS PH 7.345 (7.35-7.45); ARTERIAL BLOOD GAS PO2 74.8 (80-90)
[2020-08-22] VITALS: BP 97/60
[2020-08-22 04:00] VITALS: BP 103/63
[2020-08-22 06:10] LABS: ALBUMIN 2.9 gm/dl (3.1-4.5); ALKALINE PHOSPHATASE 91 U/L (45-117); CHLORIDE 107 mmol/L (98-107); POTASSIUM 4.3 mmol/L (3.5-5.1); SGOT/AST 5 IU/L (3-35); SGPT/ALT 21 U/L (12-78); SODIUM 139 mmol/L (136-145)
[2020-08-22 06:12] LABS: BUN 23 mg/dl (7-24)
[2020-08-22 06:20] LABS: BASO % 0.1 % (0.0-1.0); LYMPH # 1.4 10*3/uL (1.3-4.4); LYMPH % 6.9 % (27.0-41.0); MEAN CORPUSCULAR HGB 31.6 pg (27.0-31.0); MEAN CORPUSCULAR HGB CONC 31.7 g/dl (33.0-37.0); MEAN PLATELET VOLUME 10.3 fl (9.6-12.3); MONO % 4.9 % (3.0-9.0); NEUT # 17.9 10*3/uL (2.3-7.9); NEUT % 87.4 % (47.0-73.0); PLATELET COUNT AUTOMATED 294 10*3/uL (130-400); RED BLOOD COUNT 4.71 10*6/uL (4.10-5.10); RED CELL DISTRI WIDTH 12.9 % (0-14.5); WHITE BLOOD COUNT 20.5 10*3/uL (4.8-10.8)
[2020-08-22 06:23] LABS: MEAN CELL VOLUME 99.8 fl (81.0-99.0)
[2020-08-22 07:25] LABS: ABG BASE EXCESS -2.8 mmol/L (-2.0-2.0); ARTERIAL BLOOD GAS PH 7.334 (7.35-7.45); ARTERIAL BLOOD GAS PO2 87.8 (80-90)
[2020-08-22 08:00] VITALS: BP 113/74
[2020-08-22 12:00] VITALS: BP 106/62
[2020-08-22 20:00] VITALS: BP 112/63
[2020-08-23] VITALS: BP 109/66
[2020-08-23 04:00] VITALS: BP 123/67
[2020-08-23 06:21] LABS: BASO % 0.2 % (0.0-1.0); HEMATOCRIT 44.8 % (37.0-47.0); LYMPH # 1.8 10*3/uL (1.3-4.4); LYMPH % 10.2 % (27.0-41.0); MEAN CELL VOLUME 99.8 fl (81.0-99.0); MEAN CORPUSCULAR HGB 31.8 pg (27.0-31.0); MEAN CORPUSCULAR HGB CONC 31.9 g/dl (33.0-37.0); MEAN PLATELET VOLUME 10.3 fl (9.6-12.3); MONO # 1.2 10*3/uL (0.1-1.0); MONO % 7.2 % (3.0-9.0); NEUT % 81.4 % (47.0-73.0); PLATELET COUNT AUTOMATED 275 10*3/uL (130-400); RED BLOOD COUNT 4.49 10*6/uL (4.10-5.10); RED CELL DISTRI WIDTH 12.7 % (0-14.5); WHITE BLOOD COUNT 17.1 10*3/uL (4.8-10.8)
[2020-08-23 06:40] LABS: ALBUMIN 2.8 gm/dl (3.1-4.5); ALKALINE PHOSPHATASE 86 U/L (45-117); BUN 25 mg/dl (7-24); CHLORIDE 107 mmol/L (98-107); CREATININE 0.64 mg/dL (0.55-1.02); POTASSIUM 4.8 mmol/L (3.5-5.1); SGOT/AST 8 IU/L (3-35); SGPT/ALT 22 U/L (12-78); SODIUM 139 mmol/L (136-145); TOTAL PROTEIN 6.4 gm/dL (6.4-8.2)
[2020-08-23 08:00] VITALS: BP 115/67
[2020-08-23 12:00] VITALS: BP 106/59
[2020-08-23 12:14] LABS: ABG BASE EXCESS -2.3 mmol/L (-2.0-2.0); ARTERIAL BLOOD GAS PH 7.361 (7.35-7.45); ARTERIAL BLOOD GAS PO2 71.7 (80-90)
[2020-08-23 16:00] VITALS: BP 114/72
[2020-08-23 20:00] VITALS: BP 105/38
[2020-08-24] VITALS (7 sets, daily range): BP systolic 108–133; BP diastolic 60–84
[2020-08-24 06:36] LABS: BASO % 0.2 % (0.0-1.0); HEMATOCRIT 44.7 % (37.0-47.0); LYMPH # 1.8 10*3/uL (1.3-4.4); LYMPH % 12.3 % (27.0-41.0); MEAN CELL VOLUME 98.7 fl (81.0-99.0); MEAN CORPUSCULAR HGB 31.6 pg (27.0-31.0); MEAN PLATELET VOLUME 10.5 fl (9.6-12.3); MONO # 1.3 10*3/uL (0.1-1.0); MONO % 8.9 % (3.0-9.0); NEUT # 11.4 10*3/uL (2.3-7.9); NEUT % 76.8 % (47.0-73.0); PLATELET COUNT AUTOMATED 268 10*3/uL (130-400); RED BLOOD COUNT 4.53 10*6/uL (4.10-5.10); RED CELL DISTRI WIDTH 12.8 % (0-14.5); WHITE BLOOD COUNT 14.8 10*3/uL (4.8-10.8)
[2020-08-24 06:56] LABS: ALBUMIN 2.7 gm/dl (3.1-4.5); BUN 19 mg/dl (7-24); CHLORIDE 107 mmol/L (98-107); POTASSIUM 4.3 mmol/L (3.5-5.1); SGOT/AST 6 IU/L (3-35); SODIUM 140 mmol/L (136-145)
[2020-08-24 06:58] LABS: ALKALINE PHOSPHATASE 92 U/L (45-117); CREATININE 0.66 mg/dL (0.55-1.02); SGPT/ALT 22 U/L (12-78); TOTAL PROTEIN 6.4 gm/dL (6.4-8.2)
[2020-08-24 08:10] LABS: ABG BASE EXCESS 0.5 mmol/L (-2.0-2.0); ARTERIAL BLOOD GAS PH 7.358 (7.35-7.45); ARTERIAL BLOOD GAS PO2 66.1 (80-90)
[2020-08-25] VITALS: BP 100/61
[2020-08-25 06:04] LABS: BUN 21 mg/dl (7-24); CHLORIDE 104 mmol/L (98-107); POTASSIUM 4.5 mmol/L (3.5-5.1); SODIUM 140 mmol/L (136-145)
[2020-08-25 06:18] LABS: HEMATOCRIT 44.8 % (37.0-47.0); MEAN CORPUSCULAR HGB 31.5 pg (27.0-31.0); MEAN CORPUSCULAR HGB CONC 32.1 g/dl (33.0-37.0); MEAN PLATELET VOLUME 10.3 fl (9.6-12.3); PLATELET COUNT AUTOMATED 269 10*3/uL (130-400); RED BLOOD COUNT 4.57 10*6/uL (4.10-5.10); RED CELL DISTRI WIDTH 12.6 % (0-14.5); WHITE BLOOD COUNT 15.1 10*3/uL (4.8-10.8)
[2020-08-25 07:13] LABS: PLATELET SUFFICIENCY NORMAL (NORMAL); TOTAL CELLS COUNTED 100 #CELLS
[2020-08-25 08:00] VITALS: BP 132/83
[2020-08-25 12:00] VITALS: BP 126/94
[2020-08-25 16:16] VITALS: BP 121/75
[2020-08-25 20:14] VITALS: BP 117/71
[2020-08-26] VITALS: BP 123/74
[2020-08-26 08:00] VITALS: BP 128/80
[2020-08-26 12:00] VITALS: BP 119/62
[2020-08-26] MEDS ORDERED: DOXYCYCLINE MO100 M1 PO ×2 (15:43→15:44)
[2020-08-26] MEDS ORDERED: PREDNISONE10 MG PO (15:43)
[2020-08-26 16:00] VITALS: BP 135/78
== END 2020-08-26 16:35 | disposition home or self-care (01) | DRG 189 ==
LOC: ED 19:04 → EDHOLD 22:06 → ICCU 22:06 → 5E 08-21 02:41 → ICCU 08-21 03:57 → 4E 08-25 09:23
PROVIDERS: Internal Medicine; Internal Medicine Critical Care Medicine; ADMIT Internal Medicine; ATTEND Internal Medicine
PROC: 5A0935A Assistance with Respiratory Ventilation, Less than 24 Consecutive Hours, High Flow/Velocity Cannula (ICD-10-PCS; principal; 2020-08-21)
PROC: 5A09357 Assistance with Respiratory Ventilation, Less than 24 Consecutive Hours, Continuous Positive Airway Pressure (ICD-10-PCS; 2020-08-21)
PROC: 5A0935A Assistance with Respiratory Ventilation, Less than 24 Consecutive Hours, High Flow/Velocity Cannula (ICD-10-PCS; 2020-08-22)
PROC: 5A09357 Assistance with Respiratory Ventilation, Less than 24 Consecutive Hours, Continuous Positive Airway Pressure (ICD-10-PCS; 2020-08-22)
PROC: 5A0935A Assistance with Respiratory Ventilation, Less than 24 Consecutive Hours, High Flow/Velocity Cannula (ICD-10-PCS; 2020-08-23)
PROC: 5A09357 Assistance with Respiratory Ventilation, Less than 24 Consecutive Hours, Continuous Positive Airway Pressure (ICD-10-PCS; 2020-08-23)
PROC: 5A0935A Assistance with Respiratory Ventilation, Less than 24 Consecutive Hours, High Flow/Velocity Cannula (ICD-10-PCS; 2020-08-24)
PROC: 5A09357 Assistance with Respiratory Ventilation, Less than 24 Consecutive Hours, Continuous Positive Airway Pressure (ICD-10-PCS; 2020-08-24)
PROC: 5A09357 Assistance with Respiratory Ventilation, Less than 24 Consecutive Hours, Continuous Positive Airway Pressure (ICD-10-PCS; 2020-08-26)
DX: J96.01 Acute respiratory failure with hypoxia (principal); J44.1 Chronic obstructive pulmonary disease with (acute) exacerbation; Z68.42 Body mass index [BMI] 45.0-49.9, adult; R65.10 Systemic inflammatory response syndrome (SIRS) of non-infectious origin without acute organ dysfunction; J96.02 Acute respiratory failure with hypercapnia; K21.9 Gastro-esophageal reflux disease without esophagitis; E11.42 Type 2 diabetes mellitus with diabetic polyneuropathy; E66.01 Morbid (severe) obesity due to excess calories; G47.33 Obstructive sleep apnea (adult) (pediatric); J20.9 Acute bronchitis, unspecified; D75.1 Secondary polycythemia; R51.9 Headache, unspecified; E78.2 Mixed hyperlipidemia; K21.00 Gastro-esophageal reflux disease with esophagitis, without bleeding; F17.210 Nicotine dependence, cigarettes, uncomplicated; F51.04 Psychophysiologic insomnia; Z88.6 Allergy status to analgesic agent; Z71.6 Tobacco abuse counseling; Z82.49 Family history of ischemic heart disease and other diseases of the circulatory system; Z90.49 Acquired absence of other specified parts of digestive tract

== ENCOUNTER 2020-12-17 16:47 | Inpatient (IN) | payer MEDICARE ==
[~2020-12-17] VITALS: Ht 167.6 cm; Wt 133.8 kg
[~2020-12-17 16:47] MED LIST changes: +DOXYCYCLINE MO100 M1 PO; +PROAIR HFA8.5 GM INH; +TRAZODONE50 MG PO
[2020-12-17 18:28] VITALS: BP 123/69
[2020-12-17 19:31] LABS: BASO # 0.1 10*3/uL (0.0-0.1); BASO % 0.5 % (0.0-1.0); EOS # 0.2 10*3/uL (0.0-0.4); EOS % 1.4 % (1.0-4.0); HEMATOCRIT 49.4 % (37.0-47.0); LYMPH # 2.6 10*3/uL (1.3-4.4); LYMPH % 19.7 % (27.0-41.0); MEAN CELL VOLUME 96.9 fl (81.0-99.0); MEAN CORPUSCULAR HGB 31.8 pg (27.0-31.0); MEAN CORPUSCULAR HGB CONC 32.8 g/dl (33.0-37.0); MEAN PLATELET VOLUME 9.7 fl (9.6-12.3); MONO % 7.4 % (3.0-9.0); NEUT # 9.3 10*3/uL (2.3-7.9); NEUT % 70.6 % (47.0-73.0); PLATELET COUNT AUTOMATED 283 10*3/uL (130-400); RED CELL DISTRI WIDTH 12.7 % (0-14.5); WHITE BLOOD COUNT 13.2 10*3/uL (4.8-10.8)
[2020-12-17 19:47] LABS: ALBUMIN 3.3 gm/dl (3.1-4.5); ALKALINE PHOSPHATASE 100 U/L (45-117); BUN 8 mg/dl (7-24); CHLORIDE 106 mmol/L (98-107); CREATININE 0.54 mg/dL (0.55-1.02); POTASSIUM 3.7 mmol/L (3.5-5.1); SGOT/AST 27 IU/L (3-35); SGPT/ALT 38 U/L (12-78); SODIUM 139 mmol/L (136-145); TOTAL PROTEIN 7.3 gm/dL (6.4-8.2)
[2020-12-17 19:52] LABS: ARTERIAL BLOOD GAS PH 7.37 (7.35-7.45)
[2020-12-17 19:55] LABS: ARTERIAL BLOOD GAS PO2 36.7 (80-90)
[2020-12-17 20:36] VITALS: BP 135/94
[2020-12-17 21:57] VITALS: BP 114/58
[2020-12-17 23:30] LABS: ABG BASE EXCESS -3.3 mmol/L (-2.0-2.0); ARTERIAL BLOOD GAS PH 7.363 (7.35-7.45); ARTERIAL BLOOD GAS PO2 77.9 (80-90)
[2020-12-17 23:44] VITALS: BP 99/63
[2020-12-18 00:24] VITALS: BP 143/92
[2020-12-18 02:00] VITALS: BP 111/61
[2020-12-18] MEDS ORDERED: FLUOXETINE HYDR20 M1 PO (04:15)
[2020-12-18] MEDS ORDERED: PHENTERMINE H37.5 M1 PO (04:17)
[2020-12-18] MEDS ORDERED: DIAZEPAM10 M1 PO (04:18)
[2020-12-18] MEDS ORDERED: TRAZODONE100 MG PO (04:20)
[2020-12-18 06:15] LABS: BASO % 0.2 % (0.0-1.0); EOS % 0.1 % (1.0-4.0); HEMATOCRIT 49.5 % (37.0-47.0); LYMPH # 0.8 10*3/uL (1.3-4.4); LYMPH % 8.1 % (27.0-41.0); MEAN CELL VOLUME 99.4 fl (81.0-99.0); MEAN CORPUSCULAR HGB 31.7 pg (27.0-31.0); MEAN CORPUSCULAR HGB CONC 31.9 g/dl (33.0-37.0); MEAN PLATELET VOLUME 10.2 fl (9.6-12.3); MONO # 0.2 10*3/uL (0.1-1.0); MONO % 2.1 % (3.0-9.0); NEUT # 8.7 10*3/uL (2.3-7.9); NEUT % 89.1 % (47.0-73.0); PLATELET COUNT AUTOMATED 257 10*3/uL (130-400); RED BLOOD COUNT 4.98 10*6/uL (4.10-5.10); WHITE BLOOD COUNT 9.7 10*3/uL (4.8-10.8)
[2020-12-18 06:28] LABS: CHLORIDE 109 mmol/L (98-107); POTASSIUM 4.4 mmol/L (3.5-5.1); SODIUM 140 mmol/L (136-145)
[2020-12-18 06:44] LABS: BUN 10 mg/dl (7-24); CHOLESTEROL 213 mg/dL (<200); CREATININE 0.63 mg/dL (0.55-1.02); LDL CHOLESTEROL 149 mg/dL (9-159); THYROID STIM HORMONE (HS) 0.564 uIU/ml (0.358-4.75); TRIGLYCERIDES 106 mg/dl (<150)
[2020-12-18 07:10] VITALS: BP 120/67
[2020-12-18 15:38] VITALS: BP 148/90
[2020-12-18 16:42] LABS: BILIRUBIN Negative (Negative); BLOOD Negative (Negative); CLARITY Clear (Clear); COLOR Yellow (Yellow); GLUCOSE Negative (Negative); KETONE Negative (Negative); LEUKO ESTERASE Negative (Negative); NITRITE Negative (Negative); PH 6.5 (4.5-8.0); SPECIFIC GRAVITY 1.015 (1.001-1.030); UROBILINOGEN 0.2 E.U./dl (0.0-1.0)
[2020-12-18 16:50] LABS: BACTERIA TRACE
[2020-12-18 20:00] VITALS: BP 130/59
[2020-12-19 02:00] VITALS: BP 114/59
[2020-12-19 07:17] LABS: BASO % 0.1 % (0.0-1.0); HEMATOCRIT 50.1 % (37.0-47.0); LYMPH # 1.6 10*3/uL (1.3-4.4); MEAN CELL VOLUME 101.2 fl (81.0-99.0); MEAN CORPUSCULAR HGB 31.9 pg (27.0-31.0); MEAN CORPUSCULAR HGB CONC 31.5 g/dl (33.0-37.0); MEAN PLATELET VOLUME 10.5 fl (9.6-12.3); MONO % 4.3 % (3.0-9.0); PLATELET COUNT AUTOMATED 315 10*3/uL (130-400); RED BLOOD COUNT 4.95 10*6/uL (4.10-5.10); RED CELL DISTRI WIDTH 13.1 % (0-14.5); WHITE BLOOD COUNT 22.7 10*3/uL (4.8-10.8)
[2020-12-19 07:22] LABS: BUN 12 mg/dl (7-24); CHLORIDE 112 mmol/L (98-107); POTASSIUM 4.6 mmol/L (3.5-5.1); SODIUM 140 mmol/L (136-145)
[2020-12-19 07:30] LABS: ALKALINE PHOSPHATASE 85 U/L (45-117); CREATININE 0.52 mg/dL (0.55-1.02); SGOT/AST 18 IU/L (3-35); SGPT/ALT 28 U/L (12-78); TOTAL PROTEIN 7.1 gm/dL (6.4-8.2)
[2020-12-19 08:00] VITALS: BP 140/90
[2020-12-19 12:00] VITALS: BP 105/46
[2020-12-19 16:00] VITALS: BP 123/81
[2020-12-19 20:00] VITALS: BP 126/77
[2020-12-20] VITALS: BP 132/69
[2020-12-20 09:00] VITALS: BP 138/80
[2020-12-20 12:00] VITALS: BP 124/76
[2020-12-20 16:00] VITALS: BP 135/66
[2020-12-20 20:00] VITALS: BP 152/86
[2020-12-21] VITALS: BP 150/90
[2020-12-21 07:23] LABS: BASO % 0.2 % (0.0-1.0); HEMATOCRIT 46.4 % (37.0-47.0); LYMPH # 2.2 10*3/uL (1.3-4.4); LYMPH % 16.5 % (27.0-41.0); MEAN CELL VOLUME 101.5 fl (81.0-99.0); MEAN CORPUSCULAR HGB 31.7 pg (27.0-31.0); MEAN CORPUSCULAR HGB CONC 31.3 g/dl (33.0-37.0); MEAN PLATELET VOLUME 10.3 fl (9.6-12.3); MONO % 7.2 % (3.0-9.0); NEUT # 9.9 10*3/uL (2.3-7.9); NEUT % 74.8 % (47.0-73.0); PLATELET COUNT AUTOMATED 247 10*3/uL (130-400); RED BLOOD COUNT 4.57 10*6/uL (4.10-5.10); WHITE BLOOD COUNT 13.3 10*3/uL (4.8-10.8)
[2020-12-21 07:34] LABS: CHLORIDE 108 mmol/L (98-107); POTASSIUM 4.5 mmol/L (3.5-5.1); SODIUM 141 mmol/L (136-145)
[2020-12-21 07:43] LABS: ALBUMIN 2.8 gm/dl (3.1-4.5); ALKALINE PHOSPHATASE 84 U/L (45-117); BUN 19 mg/dl (7-24); CREATININE 0.54 mg/dL (0.55-1.02); SGOT/AST 12 IU/L (3-35); SGPT/ALT 35 U/L (12-78); TOTAL PROTEIN 6.4 gm/dL (6.4-8.2)
[2020-12-21 08:00] VITALS: BP 148/84
[2020-12-21 12:00] VITALS: BP 121/70
[2020-12-21] MEDS ORDERED: PREDNISONE10 MG PO (16:07)
[2020-12-21] MEDS ORDERED: Vibra-Tab100 MG PO (16:07)
[2020-12-21 20:00] VITALS: BP 141/87
== END 2020-12-21 21:00 | disposition home or self-care (01) | DRG 871 ==
LOC: ED 16:47 → 4E 22:58 → EDHOLD 22:58 → 4E 12-18 14:23
PROVIDERS: Internal Medicine; Nurse Practitioner; Podiatrist; ADMIT Internal Medicine; ATTEND Internal Medicine
PROC: 5A0935A Assistance with Respiratory Ventilation, Less than 24 Consecutive Hours, High Flow/Velocity Cannula (ICD-10-PCS; principal; 2020-12-17)
PROC: 5A09357 Assistance with Respiratory Ventilation, Less than 24 Consecutive Hours, Continuous Positive Airway Pressure (ICD-10-PCS; 2020-12-17)
PROC: 5A0935A Assistance with Respiratory Ventilation, Less than 24 Consecutive Hours, High Flow/Velocity Cannula (ICD-10-PCS; 2020-12-18)
PROC: 5A0935A Assistance with Respiratory Ventilation, Less than 24 Consecutive Hours, High Flow/Velocity Cannula (ICD-10-PCS; 2020-12-19)
PROC: 5A09357 Assistance with Respiratory Ventilation, Less than 24 Consecutive Hours, Continuous Positive Airway Pressure (ICD-10-PCS; 2020-12-19)
PROC: 5A0935A Assistance with Respiratory Ventilation, Less than 24 Consecutive Hours, High Flow/Velocity Cannula (ICD-10-PCS; 2020-12-20)
PROC: 5A09357 Assistance with Respiratory Ventilation, Less than 24 Consecutive Hours, Continuous Positive Airway Pressure (ICD-10-PCS; 2020-12-20)
PROC: 5A0935A Assistance with Respiratory Ventilation, Less than 24 Consecutive Hours, High Flow/Velocity Cannula (ICD-10-PCS; 2020-12-21)
PROC: 5A09357 Assistance with Respiratory Ventilation, Less than 24 Consecutive Hours, Continuous Positive Airway Pressure (ICD-10-PCS; 2020-12-21)
DX: A41.9 Sepsis, unspecified organism (principal); J96.01 Acute respiratory failure with hypoxia; J18.9 Pneumonia, unspecified organism; J45.901 Unspecified asthma with (acute) exacerbation; J44.0 Chronic obstructive pulmonary disease with (acute) lower respiratory infection; J44.1 Chronic obstructive pulmonary disease with (acute) exacerbation; Z68.42 Body mass index [BMI] 45.0-49.9, adult; E66.01 Morbid (severe) obesity due to excess calories; Z20.822 Contact with and (suspected) exposure to COVID-19; R65.20 Severe sepsis without septic shock; F32.9 Major depressive disorder, single episode, unspecified; K21.9 Gastro-esophageal reflux disease without esophagitis; F17.210 Nicotine dependence, cigarettes, uncomplicated; D75.1 Secondary polycythemia; E55.9 Vitamin D deficiency, unspecified; J44.9 Chronic obstructive pulmonary disease, unspecified; F41.1 Generalized anxiety disorder; G47.33 Obstructive sleep apnea (adult) (pediatric); J20.9 Acute bronchitis, unspecified; Z90.49 Acquired absence of other specified parts of digestive tract; Z98.891 History of uterine scar from previous surgery; Z71.6 Tobacco abuse counseling; Z90.710 Acquired absence of both cervix and uterus; Z82.49 Family history of ischemic heart disease and other diseases of the circulatory system; Z88.6 Allergy status to analgesic agent; Z88.8 Allergy status to other drugs, medicaments and biological substances; Z79.51 Long term (current) use of inhaled steroids; Z79.899 Other long term (current) drug therapy

== ENCOUNTER → 2021-12-12 | Outpatient (CLI) | payer MEDICARE ==
[~2021-12-12] MED LIST changes: +DIAZEPAM10 M1 PO; +FLUOXETINE HYDR20 M1 PO; +PHENTERMINE H37.5 M1 PO; +Vibra-Tab100 MG PO
== END | disposition home or self-care (01) ==
LOC: RAD 13:29
PROVIDERS: ATTEND Internal Medicine
DX: M54.42 Lumbago with sciatica, left side (principal); Z90.49 Acquired absence of other specified parts of digestive tract

== ENCOUNTER → 2022-10-09 | Outpatient (CLI) | payer MEDICARE | END | disposition home or self-care (01) | LOC: MAMMO 10-04 11:00 | PROVIDERS: ATTEND Internal Medicine | DX: Z12.31 Encounter for screening mammogram for malignant neoplasm of breast (principal); N63.13 Unspecified lump in the right breast, lower outer quadrant; N63.21 Unspecified lump in the left breast, upper outer quadrant ==

== ENCOUNTER → 2022-12-05 | Outpatient (CLI) | payer MEDICARE | END | disposition home or self-care (01) | LOC: RAD 16:05 | PROVIDERS: ATTEND Internal Medicine | DX: M17.11 Unilateral primary osteoarthritis, right knee (principal); M11.261 Other chondrocalcinosis, right knee ==

== ENCOUNTER 2023-06-22 13:27 | Emergency (ER) | payer OTHER, MEDICARE ==
[~2023-06-22] VITALS: Ht 167.6 cm; Wt 136.1 kg
[2023-06-22 13:43] VITALS: BP 154/96
[2023-06-22] MEDS ORDERED: VITAMIN D3125 MC1 PO (13:48)
[2023-06-22] MEDS ORDERED: HYDROCHLOROTH12.5 M2 PO (13:48)
[2023-06-22] MEDS ORDERED: VITAMIN E400 UNIT PO (13:49)
[2023-06-22] MEDS ORDERED: NATURE'S BLEND F1 MG PO (13:49)
[2023-06-22] MEDS ORDERED: Cyclobenzaprine Hydrochlorid 10 MG TAB PO ONE (13:55)
[2023-06-22] MEDS ORDERED: Acetaminophen/Oxycodone 5 MG/325 MG TABLET PO ONE (13:55)
[2023-06-22] MEDS ORDERED: CYCLOBENZAPRINE10 MG PO (14:00)
[2023-06-22] MEDS ORDERED: MELOXICAM15 MG PO (14:00)
== END 2023-06-22 14:54 | disposition home or self-care (01) ==
LOC: ED 13:27
DX: S13.4XXA Sprain of ligaments of cervical spine, initial encounter (principal); I10 Essential (primary) hypertension; F41.9 Anxiety disorder, unspecified; J44.9 Chronic obstructive pulmonary disease, unspecified; F31.9 Bipolar disorder, unspecified; K21.9 Gastro-esophageal reflux disease without esophagitis; Z88.6 Allergy status to analgesic agent; Z90.710 Acquired absence of both cervix and uterus; Z90.49 Acquired absence of other specified parts of digestive tract; Z98.890 Other specified postprocedural states; Z96.653 Presence of artificial knee joint, bilateral; F17.200 Nicotine dependence, unspecified, uncomplicated; V89.2XXA Person injured in unspecified motor-vehicle accident, traffic, initial encounter; Y93.89 Activity, other specified; Y92.410 Unspecified street and highway as the place of occurrence of the external cause; Y99.8 Other external cause status

== ENCOUNTER 2024-10-22 22:56 | Emergency (ER) | payer MEDICARE ==
[~2024-10-22] VITALS: Ht 165.1 cm; Wt 113.4 kg
[~2024-10-22 22:56] MED LIST changes: +HYDROCHLOROTH12.5 M2 PO; +MELOXICAM15 MG PO; +NATURE'S BLEND F1 MG PO; +VITAMIN D3125 MC1 PO; +VITAMIN E400 UNIT PO
[2024-10-22 23:16] VITALS: BP 134/86
[2024-10-22 23:26] LABS: BILIRUBIN 1+ (Negative); BLOOD 3+ (Negative); CLARITY Cloudy (Clear); COLOR Orange (Yellow); KETONE Trace (Negative); LEUKO ESTERASE 2+ (Negative); NITRITE Negative (Negative); PH 5.5 (4.5-8.0); SPECIFIC GRAVITY 1.025 (1.001-1.030); UROBILINOGEN 1.0 E.U./dl (0.0-1.0)
[2024-10-22 23:48] LABS: MEAN CELL VOLUME 93.3 fl (81.0-99.0); MEAN CORPUSCULAR HGB 30.8 pg (27.0-31.0); MEAN PLATELET VOLUME 9.7 fl (9.6-12.3); NUCLEATED RED BLOOD CELL 0.0 % (0.0-0.0); NUCLEATED RED BLOOD CELL 0.0 10*3/uL (0.0-0.0); PLATELET COUNT AUTOMATED 286 10*3/uL (130-400); RED CELL DISTRI WIDTH 12.7 % (0-14.5)
[2024-10-22 23:51] LABS: BACTERIA 2+; RBC TNTC rbc/hpf (0-2); WBC 16-20 wbc/hpf (0-5)
[2024-10-22 23:54] LABS: MANUAL DIFF REFLEX YES
[2024-10-23 00:10] LABS: BASOPHILS 1 % (0-1); PLATELET SUFFICIENCY NORMAL (NORMAL)
[2024-10-23 00:17] LABS: BUN 13 mg/dl (9-23)
[2024-10-23] MEDS ORDERED: PERCOCET 5-3251 EACH PO ×2 (03:04→12:42)
[2024-10-23] MEDS ORDERED: OMNICEF300 MG PO (03:04)
[2024-10-23] MEDS ORDERED: Acetaminophen/Oxycodone 5 MG/325 MG TABLET PO ONE (03:10)
[2024-10-23] MEDS ORDERED: CEFDINIR 300 MG CAP PO ONE (03:10)
[2024-10-23] MEDS ORDERED: POTASSIUM CHLORIDE 20 MEQ TAB PO ONE (03:10)
== END 2024-10-23 03:24 | disposition home or self-care (01) ==
LOC: ED 22:56
PROVIDERS: Emergency Medicine
DX: N13.2 Hydronephrosis with renal and ureteral calculous obstruction (principal); N39.0 Urinary tract infection, site not specified; N83.202 Unspecified ovarian cyst, left side; E78.00 Pure hypercholesterolemia, unspecified; K21.9 Gastro-esophageal reflux disease without esophagitis; J44.9 Chronic obstructive pulmonary disease, unspecified; E66.01 Morbid (severe) obesity due to excess calories; G62.9 Polyneuropathy, unspecified; Z68.30 Body mass index [BMI] 30.0-30.9, adult; Z87.442 Personal history of urinary calculi; Z90.711 Acquired absence of uterus with remaining cervical stump; Z88.6 Allergy status to analgesic agent; Z79.899 Other long term (current) drug therapy; Z68.41 Body mass index [BMI] 40.0-44.9, adult; Z98.890 Other specified postprocedural states; Z90.49 Acquired absence of other specified parts of digestive tract; Z90.710 Acquired absence of both cervix and uterus

== ENCOUNTER → 2024-11-06 | Outpatient (CLI) | payer MEDICARE ==
[~2024-11-06] MED LIST changes: +OMNICEF300 MG PO; +PERCOCET 5-3251 EACH PO
== END | disposition home or self-care (01) ==
LOC: US 10:00
PROVIDERS: ATTEND Internal Medicine
DX: N20.0 Calculus of kidney (principal); Z90.711 Acquired absence of uterus with remaining cervical stump

== ENCOUNTER 2024-11-16 13:32 | Emergency (ER) | payer MEDICARE ==
[~2024-11-16] VITALS: Ht 165.1 cm; Wt 108.9 kg
[2024-11-16 13:33] VITALS: BP 140/90
[2024-11-16 14:00] LABS: BILIRUBIN Negative (Negative); BLOOD Negative (Negative); CLARITY Cloudy (Clear); COLOR Yellow (Yellow); KETONE Trace (Negative); LEUKO ESTERASE Trace (Negative); NITRITE Negative (Negative); PH 6.5 (4.5-8.0); SPECIFIC GRAVITY 1.015 (1.001-1.030); UROBILINOGEN 1.0 E.U./dl (0.0-1.0)
[2024-11-16 14:08] LABS: URINE AMPHETAMINES Negative (1000ng/ml); URINE BARBITURATES Negative (200ng/ml); URINE BENZODIAZEPINES Positive (200ng/ml); URINE CANNABINOIDS (THC) Positive (50ng/ml); URINE COCAINE Positive (300ng/ml); URINE METHADONE Negative (300ng/ml); URINE OPIATES Negative (300ng/ml); URINE PHENCYCLIDINE Negative (25ng/ml)
[2024-11-16 14:15] LABS: BASO # 0.1 10*3/uL (0.0-0.1); BASO % 0.5 % (0.0-1.0); EOS # 0.2 10*3/uL (0.0-0.4); EOS % 2.1 % (1.0-4.0); MEAN CELL VOLUME 92.1 fl (81.0-99.0); MEAN CORPUSCULAR HGB 31.0 pg (27.0-31.0); MEAN PLATELET VOLUME 9.8 fl (9.6-12.3); MONO # 1.1 10*3/uL (0.1-1.0); MONO % 9.8 % (3.0-9.0); NEUT # 6.2 10*3/uL (2.3-7.9); NEUT % 57.5 % (47.0-73.0); NUCLEATED RED BLOOD CELL 0.0 % (0.0-0.0); NUCLEATED RED BLOOD CELL 0.0 10*3/uL (0.0-0.0); PLATELET COUNT AUTOMATED 266 10*3/uL (130-400); RED CELL DISTRI WIDTH 13.1 % (0-14.5)
[2024-11-16 14:25] LABS: BACTERIA 2+; EPITHELIAL CELLS 21-30; HYALINE CAST 0-2; MUCOUS 1+; RBC 0-2 rbc/hpf (0-2)
[2024-11-16 14:57] LABS: BUN 10 mg/dl (9-23); SGPT/ALT 21 U/L (5-49)
[2024-11-16 14:59] LABS: ETHYL ALCOHOL < 3.0 mg/dl (<3)
[2024-11-16] MEDS ORDERED: Nitrofurantoin Monohydrate/N 100 MG CAP PO ONE (15:20)
== END 2024-11-16 16:25 | disposition home or self-care (01) ==
LOC: ED 13:32
PROVIDERS: Emergency Medicine
DX: F43.21 Adjustment disorder with depressed mood (principal); I10 Essential (primary) hypertension; F41.9 Anxiety disorder, unspecified; F31.9 Bipolar disorder, unspecified; J44.9 Chronic obstructive pulmonary disease, unspecified; Z98.890 Other specified postprocedural states; Z90.710 Acquired absence of both cervix and uterus